=== PATIENT | female | born 1945 | race Caucasian/White ===

== ENCOUNTER → 2018-10-23 | Outpatient (REF) | payer BC | LOC: ZZSENDIN 14:41 | PROVIDERS: ATTEND Physician Assistant | DX: E78.2 Mixed hyperlipidemia (principal) ==

== ENCOUNTER → 2018-12-12 | Outpatient (CLI) | payer BC ==
--- NOTE | 2018-12-12 22:53 | RADIOLOGY IMAGING REPORT ---
FACILITY: [facility] PATIENT NAME: Neela Roblero : 1945 MR: [id number] V: [id number] EXAM DATE: ORDERING PHYSICIAN: ANDRIY CARRERA TECHNOLOGIST: Location: [facility] Patient: Neela Roblero : 1945 Visit/Account:[id number] Date of Sevice: 12/12/2018 DEXA Scan Clinical history: Rheumatoid arthritis. Comparison: None. LUMBAR SPINE: The bone mineral density (BMD) measured from L1-L4 correlates with a Z-score of 1.0 and a T-score of 0.0 which is Normal bone mineral density as defined by the World Health Organization. The correspond ing risk of fracture in the lumbar spine is Not increased compared with a [facility]. HIP: Bone mineral density (BMD) measured in the Left total hip region correlates with a Z-score of 1.1 and a T-score of 0.1 which is Normal bone mineral density as defined by the World Health Organization. The corresponding risk of fracture in the hip is Not increased compared with a young adult reference population. Impression: 1. Lumbar spine: Normal bone mineral density. 2. Total Hip: Normal bone mineral density. 3. Femoral Neck: Bone Mineral Density is 0.941 g/cm? The next DEXA scan of this patient should include the following sites: Left hip and lumbar spine. FRAX? WHO Fracture Risk Assessment Tool link: <http://www.shef.ac.uk/FRAX/tool.jsp?locationValue=9> PLEASE NOTE: 1) The World Health Organization defines low BMD as follows: T-score Normal > -1 Osteopenia < -1 and > -2.5 Osteoporosis < -2.5 without fractures Established osteoporosis < -2.5 with fractures 2) In general, you may wish to consider: Diagnosis Treatment Follow-up DEXA Normal BMD Prevention 2-3 years Osteopenia Prevention/therapy 1-2 years Osteoporosis Therapy Yearly 3) Fracture risk estimated from the T-score is more accurate for vertebral fractures (often spontane ous) than for hip fractures. . Report Dictated By: Draek Young at 12/12/2018 10:45 PM Report E-Signed By: Drake Young at 12/12/2018 10:47 PM WSN:[id number]
--- NOTE | 2018-12-17 13:51 | RADIOLOGY IMAGING REPORT ---
FACILITY: [facility] [place] PATIENT NAME: KARSON ATKINSON : [id number] MR: [id number] V: [id number] EXAM DATE: [id number] ORDERING PHYSICIAN: ANDRIY CARRERA TECHNOLOGIST: Robyn Handy PROCEDURE: BILATERAL DIGITAL SCREENING MAMMOGRAM WITH CAD ASSISTED INTERPRETATION & 3D TOMOSYNTHESIS. REASON FOR STUDY: Screening. COMPARISON: 10/15/2016 & 10/14/2015. VIEWS OBTAINED: 2D & 3D full field CC & MLO projections. BREAST DENSITY: Demonstrates scattered fibroglandular tissue elements. MAMMOGRAM FINDINGS: There is no suspicious mass, calcification, or architectural distortion. IMPRESSION: BIRADS 1: Negative. DIAGNOSTIC CATEGORY 1--NEGATIVE. RECOMMENDATIONS: ROUTINE MAMMOGRAM AND CLINICAL EVALUATION IN 1YR. Dictated by: Alan Vega M.D. on 12/17/2018 at 9:23 Transcribed by: DELMI on 12/17/2018 at 9:41 Approved by: Alan Vega M.D. on 12/17/2018 at 13:46 [facility]
== END ==
LOC: MAMO 02:40
PROVIDERS: ATTEND Physician Assistant
DX: Z12.31 Encounter for screening mammogram for malignant neoplasm of breast (principal); N95.8 Other specified menopausal and perimenopausal disorders; Z80.3 Family history of malignant neoplasm of breast
CPT/HCPCS: 77063; 77067; 77080